=== PATIENT | female | born 1970 | race Two or more races ===

== ENCOUNTER 2019-08-07 23:28 | Emergency (ER) | payer OTHER ==
[~2019-08-07] VITALS: Ht 162.6 cm; Wt 72.7 kg
[~2019-08-07 23:28] MED LIST: AMIT10TA PO; MELO15TA23 PO
[2019-08-07 23:55] VITALS: BP 129/94
--- NOTE | 2019-08-08 00:03 | PHYS DOC ---
Adult General Chief Complaint Chief Complaint: SORE THROAT HPI HPI 48-year-old female presents emergency department complaints of sore throat, pain with swallowing. She has a history of asthma. She has been using her inhaler. She denies any fever. She is currently 98.2. Denies any nausea or vomiting chest pain or shortness of breath. Patient describes postnasal drainage. She has not called her primary care physician nor taking medications [id number]. Nothing makes her symptoms worse, nothing makes her symptoms better. Review of Systems Review of Systems Constitutional: Denies fever or chills [] Eyes: Denies change in visual acuity, redness, or eye pain [] HENT: sore throat Respiratory: Denies cough or shortness of breath [] Cardiovascular: No additional information not addressed in HPI [] GI: Denies abdominal pain, nausea, vomiting, bloody stools or diarrhea [] Integument: Denies rash or skin lesions [] Neurologic: Denies headache, focal weakness or sensory changes [] All other systems were reviewed and found to be within normal limits, except as documented in this note. Allergies Allergies Allergies Coded Allergies Type Severity Reaction Last Updated Verified aspirin Allergy Intermediate Rash 09/03/13 Yes Physical Exam Physical Exam Constitutional: Well developed, well nourished, no acute distress, non-toxic appearance. [] HENT: Normocephalic, atraumatic, bilateral external ears normal, oropharynx moist, no oral exudates, nose normal. [] Eyes: PERRLA, EOMI, conjunctiva normal, no discharge. [] Neck: Normal range of motion, tenderness upon palpation, supple, no stridor. [] Cardiovascular:Heart rate regular rhythm, no murmur [] Lungs & Thorax: Bilateral breath sounds clear to auscultation [] Abdomen: Bowel sounds normal, soft, no tenderness, no masses, no pulsatile masses. [] Skin: Warm, dry, no erythema, no rash. [] Neurologic: Alert and oriented X 3, no focal deficits noted. [] Psychologic: Affect normal, judgement normal, mood normal. [] EKG EKG [] Radiology/Procedures Radiology/Procedures [] Course & Med Decision Making Course & Med Decision Making Pertinent Labs and Imaging studies reviewed. (See chart for details) []48-year-old female presents emergency department complaints of sore throat, pain with swallowing. She has a history of asthma. She has been using her inhaler. She denies any fever. She is currently 98.2. Denies any nausea or vomiting chest pain or shortness of breath. Patient describes postnasal drainage. She has not called her primary care physician nor taking medications [id number]. Nothing makes her symptoms worse, nothing makes her symptoms better. Dragon Disclaimer Dragon Disclaimer This electronic medical record was generated, in whole or in part, using a voice recognition dictation system. Departure Departure Impression: Primary Impression: Sore throat (viral) Disposition: 01 HOME, SELF-CARE Condition: STABLE Referrals: RASHMI WICK (PCP) Patient Instructions: Sore Throat, [id number] Additional Instructions: Recommend tylenol as needed for fever Rapid strep negative Recommend mucinex, antihistamine for allergies over the counter No evidence of acute infection appreciated JUAN ROSA MD Aug 08, 2019 00:03
== END 2019-08-08 00:34 | disposition home or self-care (01) ==
LOC: ER 23:28
DX: J02.8 Acute pharyngitis due to other specified organisms (principal); B97.89 Other viral agents as the cause of diseases classified elsewhere; J44.9 Chronic obstructive pulmonary disease, unspecified
CPT/HCPCS: 87070; 87880; 99283